=== PATIENT | male | born 1985 | race Two or more races ===

== ENCOUNTER 2018-04-25 15:50 | Emergency (ER) | payer SELFPAY ==
[2018-04-25 15:58] VITALS: BP 134/81
--- NOTE | 2018-04-25 16:01 | ER Document Report ---
HPI - HPI Patient complains to provider of: Knee pain Onset: Other - Several months Onset/Duration: Waxing and waning Pain Level: 4 Context: 32-year-old male with intermittent medial left knee pain for several months has increased pain for the past 3 days. It was so bad it caused him to hunch forward and have low back pain because of the limping. Hurts medially and sometimes over the patella. No injury although he had a cyst removed from his superior lateral knee years ago. No hx gout. No fever. No IV drug use. No radiculopathy. No saddle anesthesia. Associated Symptoms: None Exacerbated by: Other - Bending or straightening it varies according to the patient Relieved by: Denies Similar symptoms previously: Yes Recently seen / treated by doctor: No - ROS ROS below otherwise negative: Yes Systems Reviewed and Negative: Yes All other systems reviewed and negative Past Medical History - General Information source: Patient - Social History Smoking Status: Current Every Day Smoker Frequency of alcohol use: None Drug Abuse: None Lives with: Family Family History: Reviewed & Not Pertinent Past Surgical History: Reports: Hx Appendectomy - Immunizations Immunizations up to date: Yes Hx Diphtheria, Pertussis, Tetanus Vaccination: No Vertical Provider Document - CONSTITUTIONAL Agree With Documented VS: Yes Exam Limitations: No Limitations - INFECTION CONTROL TRAVEL OUTSIDE OF THE [place] IN LAST 30 DAYS: No - BACK Back: Normal Inspection Notes: Nontender - MUSCULOSKELETAL/EXTREMETIES Musculoskeletal/Extremeties: MAEW, FROM, Tender - Medial left knee, patellar tendon intact and is nontender. negative: Edema - NEURO Level of Consciousness: Alert - DERM Integumentary: No Rash Course - Re-evaluation Re-evalutation: 04/25/18 17:18 X-ray is negative per radiologist and the patient states the knee immobilizer is helping a lot. I will refer him to orthopedics for this chronic knee pain - Vital Signs Vital signs: Temp Pulse Resp BP Pulse Ox 98.5 F 90 18 134/81 H 97 04/25/18 15:57 04/25/18 15:57 04/25/18 15:57 04/25/18 15:57 04/25/18 15:57 Procedures - Immobilization Left Knee Time completed: 17:06 Pre-Proc Neuro Vasc Exam: Normal Performed by: PCT Post-Proc Neuro Vasc Exam: Normal Alignment checked and good: Yes Discharge - Discharge Clinical Impression: Chronic left knee pain Condition: Good Disposition: HOME, SELF-CARE Instructions: Acetaminophen, Ibuprofen (General) ([facility]), Knee Immobilizing Splint ([facility]), Sprained Knee ([facility]) Additional Instructions: Knee immobilizer for comfort Tylenol up to 4000 mg a day for pain Motrin 600 mg up to 4 times a day for inflammation and pain See the orthopedic doctor Return to the emergency room any worsening of the symptoms Prescriptions: Ibuprofen [Motrin 600 mg Tablet] 600 mg PO Q8HP PRN #30 tablet PRN Reason: Forms: Return to Work Referrals: SHIVAM MCCOY MD [ACTIVE STAFF] - Follow up as needed
[2018-04-25] MEDS ORDERED: ACETAMINOPHEN 325 MG TABLET PO ONE (16:06)
[2018-04-25] MEDS ORDERED: IBUPROFEN 400 MG TABLET PO ONE (16:06)
--- NOTE | 2018-04-25 17:16 | RADIOLOGY REPORT (SQ) ---
EXAM DESCRIPTION: KNEE LEFT 4 VIEW COMPLETED DATE/TIME: 04/25/2018 4:40 pm REASON FOR STUDY: knee pain COMPARISON: None. NUMBER OF VIEWS: Four views. TECHNIQUE: AP, lateral, and both oblique radiographic images acquired of the left knee. LIMITATIONS: None. FINDINGS: MINERALIZATION: Normal. BONES: No acute fracture or dislocation. No worrisome bone lesions. JOINT: No effusion. SOFT TISSUES: No soft tissue swelling. No radio-opaque foreign body. OTHER: No other significant finding. IMPRESSION: NO RADIOGRAPHIC EVIDENCE OF ACUTE INJURY. TECHNICAL DOCUMENTATION: JOB ID: [id number] [place]-[id number] 2010 [employer]- All Rights Reserved Reading location - IP/workstation name: [email or web address]
== END 2018-04-25 17:23 | disposition home or self-care (01) ==
LOC: ER 15:50
DX: M25.562 Pain in left knee (principal); G89.29 Other chronic pain; M54.5 Low back pain; F17.200 Nicotine dependence, unspecified, uncomplicated
CPT/HCPCS: 99283; 73564; L1830; J3490

== ENCOUNTER 2018-08-19 16:38 | Emergency (ER) | payer BC ==
[2018-08-19] MEDS ORDERED: ONDANSETRON HCL INJ/PF 4 MG/2 ML SDV IV ONE (17:42)
[2018-08-19] MEDS ORDERED: NORMAL SALINE 1000 ML 1,000 ML IV ONE (17:42)
[2018-08-19] MEDS ORDERED: DICYCLOMINE HCL INJ 20 MG/2 ML AMPULE IM ONE (17:42)
--- NOTE | 2018-08-19 17:44 | ER Document Report ---
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 With a history of constipation. Did not have any bowel movement for the last 5 days. TRAVEL OUTSIDE OF THE [place] IN LAST 30 DAYS: No - Related Data Allergies/Adverse Reactions: No Known Drug Allergies Allergy (Unknown, Verified 08/19/18 17:38) Past Medical History - Social History Chew tobacco use (# tins/day): No Drug Abuse: None - Past Medical History Cardiac Medical History: Denies: Hx Coronary Artery Disease, Hx Heart Attack, Hx Hypertension Pulmonary Medical History: Denies: Hx Asthma, Hx Bronchitis, Hx COPD, Hx Pneumonia Neurological Medical History: Denies: Hx Cerebrovascular Accident, Hx Seizures Renal/ Medical History: Denies: Hx Peritoneal Dialysis Musculoskeltal Medical History: Denies Hx Arthritis Past Surgical History: Reports: Hx Appendectomy - Immunizations Immunizations up to date: Yes Hx Diphtheria, Pertussis, Tetanus Vaccination: No Physical Exam - Vital signs Vitals: Temp Pulse Resp BP Pulse Ox 98.2 F 85 18 133/70 H 96 08/19/18 17:00 08/19/18 17:00 08/19/18 17:00 08/19/18 17:00 08/19/18 17:00 Course - Vital Signs Vital signs: Temp Pulse Resp BP Pulse Ox 98.2 F 85 18 133/70 H 96 08/19/18 17:00 08/19/18 17:00 08/19/18 17:00 08/19/18 17:00 08/19/18 17:00 Doctor's Discharge - Discharge Referrals: LILI WALSH MD [Primary Care Provider] - Follow up as needed
--- NOTE | 2018-08-19 18:23 | RADIOLOGY REPORT (SQ) ---
EXAM DESCRIPTION: ACUTE ABDOMEN SERIES COMPLETED DATE/TIME: 08/19/2018 6:14 pm REASON FOR STUDY: Abdominal pain nausea vomiting COMPARISON: None. NUMBER OF VIEWS: Three views. TECHNIQUE: Frontal chest, supine abdomen and upright/decubitus abdomen radiographic images acquired. LIMITATIONS: None. FINDINGS: CHEST: Lungs clear of infiltrates. FREE AIR: None. No abnormal gas collections. BOWEL GAS PATTERN: Nonobstructive pattern. No dilated loops or air fluid levels. CALCIFICATIONS: No suspicious calcifications. HARDWARE: None in the abdomen. SOFT TISSUES: No gross mass or suggestion of organomegaly. BONES: No acute fracture. No worrisome bone lesions. OTHER: No other significant finding. IMPRESSION: NO RADIOGRAPHIC EVIDENCE FOR ACUTE ABDOMINAL DISEASE. TECHNICAL DOCUMENTATION: JOB ID: [id number] [employer]- All Rights Reserved Reading location - IP/workstation name: [email or web address]
[2018-08-19 18:30] LABS: ABSOLUTE BASOPHILS # (AUTO) 0.1 10^3/uL (0.0-0.2); ABSOLUTE LYMPHOCYTES (AUTO) 1.5 10^3/uL (0.5-4.7); ABSOLUTE NEUT (AUTO) 14.6 10^3/uL (1.7-8.2); BASOPHILS % (AUTO) 0.3 % (0-2); EOSINOPHILS % (AUTO) 0.1 % (0-6); HEMATOCRIT 36.8 % (37.9-51.0); HEMOGLOBIN 11.6 g/dL (13.5-17.0); LYMPHOCYTES % (AUTO) 8.5 % (13-45); MEAN CORPUSCULAR HEMOGLOBIN 18.4 pg (27.0-33.4); MEAN CORPUSCULAR HGB CONC 31.4 g/dL (32.0-36.0); MONOCYTES % (AUTO) 5.8 % (3-13); PLATELET COUNT 337 10^3/uL (150-450); RED BLOOD COUNT 6.27 10^6/uL (4.35-5.55); RED CELL DISTRIBUTION WIDTH 17.1 % (11.5-14.0); SEGMENTED NEUTROPHILS % (AUTO) 85.3 % (42-78); TOTAL CELLS COUNTED % (AUTO) 100 %; WHITE BLOOD COUNT 17.1 10^3/uL (4.0-10.5)
[2018-08-19 18:45] LABS: ALANINE AMINOTRANSFERASE 19 U/L (21-72); ALBUMIN 4.8 g/dL (3.5-5.0); ALKALINE PHOSPHATASE 127 U/L (38-126); ANION GAP 13 (5-19); ASPARTATE AMINO TRANSFERASE 20 U/L (17-59); BILIRUBIN,DIRECT 0.4 mg/dL (0.0-0.4); BILIRUBIN,TOTAL 1.2 mg/dL (0.2-1.3); BLOOD UREA NITROGEN 10 mg/dL (7-20); CARBON DIOXIDE 28 mmol/L (22-30); CHLORIDE 102 mmol/L (98-107); GLUCOSE 103 mg/dL (75-110); LIPASE 33.2 U/L (23-300); POTASSIUM 4.2 mmol/L (3.6-5.0); SODIUM 143.4 mmol/L (137-145)
[2018-08-19 18:47] LABS: ANISOCYTOSIS 1+; HYPOCHROMASIA 2+; PLATELET COMMENT ADEQUATE; POIKILOCYTOSIS SLIGHT; TARGET CELLS SLIGHT; TOXIC GRANULATION SLIGHT
[2018-08-19 18:48] LABS: MEAN CORPUSCULAR VOLUME 59 fl (80-97)
[2018-08-19 20:39] LABS: AMORPHOUS SEDIMENT,URINE 3+ /HPF; BILIRUBIN,URINE NEGATIVE (NEGATIVE); COLOR,URINE YELLOW; GLUCOSE, URINE NEGATIVE (NEGATIVE); KETONES,URINE TRACE mg/dL (NEGATIVE); LEUKOCYTE ESTERASE,URINE NEGATIVE (NEGATIVE); NITRITE,URINE NEGATIVE (NEGATIVE); PROTEIN,URINE NEGATIVE (NEGATIVE); UROBILINOGEN,URINE NEGATIVE mg/dL (<2.0)
[2018-08-19 20:40] LABS: APPEARANCE,URINE CLOUDY
--- NOTE | 2018-08-19 20:44 | ER Document Report ---
ED General - General Chief Complaint: Abdominal Pain Stated Complaint: NAUSEA/VOMITING Time Seen by Provider: 08/19/18 17:41 Notes: Patient is a 33-year-old male presenting to the emergency department complaining of 4 days of nausea, body aches, chills, generalized abdominal cramping. Patient states his last bowel movement was on Thursday. States he typically goes for a couple days between bowel movements. Patient denies dysuria or URI symptoms. Patient denies vomiting or diarrhea. Past medical history: Anemia Medications: Methadone Allergies: None Surgical history: Appendectomy TRAVEL OUTSIDE OF THE [place] IN LAST 30 DAYS: No - Related Data Allergies/Adverse Reactions: No Known Drug Allergies Allergy (Unknown, Verified 08/19/18 17:38) Past Medical History - General Information source: Patient - Social History Smoking Status: Never Smoker Chew tobacco use (# tins/day): No Drug Abuse: None Lives with: Family Family History: Reviewed & Not Pertinent Patient has suicidal ideation: No Patient has homicidal ideation: No - Past Medical History Cardiac Medical History: Denies: Hx Coronary Artery Disease, Hx Heart Attack, Hx Hypertension Pulmonary Medical History: Denies: Hx Asthma, Hx Bronchitis, Hx COPD, Hx Pneumonia Neurological Medical History: Denies: Hx Cerebrovascular Accident, Hx Seizures Renal/ Medical History: Denies: Hx Peritoneal Dialysis Musculoskeletal Medical History: Denies Hx Arthritis Past Surgical History: Reports: Hx Appendectomy - Immunizations Immunizations up to date: Yes Hx Diphtheria, Pertussis, Tetanus Vaccination: No Review of Systems - Review of Systems Constitutional: See HPI. denies: Fever Cardiovascular: No symptoms reported Respiratory: See HPI Gastrointestinal: See HPI Genitourinary: See HPI Male Genitourinary: No symptoms reported Musculoskeletal: No symptoms reported Skin: No symptoms reported Hematologic/Lymphatic: No symptoms reported Neurological/Psychological: No symptoms reported Physical Exam - Vital signs Vitals: Temp Pulse Resp BP Pulse Ox 98.2 F 85 18 133/70 H 96 08/19/18 17:00 08/19/18 17:00 08/19/18 17:00 08/19/18 17:00 08/19/18 17:00 - Notes Notes: GENERAL: Alert, interacts well. No acute distress. HEAD: Normocephalic, atraumatic. EYES: Pupils equal, round, and reactive to light. Extraocular movements intact. ENT: Oral mucosa moist, tongue midline. NECK: Full range of motion. Supple. Trachea midline. LUNGS: Clear to auscultation bilaterally, no wheezes, rales, or rhonchi. No respiratory distress. HEART: Regular rate and rhythm. No murmur ABDOMEN: Soft, non-tender. Non-distended. Bowel sounds present in all 4 quadrants. EXTREMITIES: Moves all 4 extremities spontaneously. No edema, normal radial and dorsalis pedis pulses bilaterally. No cyanosis. BACK: no cervical, thoracic, lumbar midline tenderness. No saddle anesthesia, normal distal neurovascular exam. NEUROLOGICAL: Alert and oriented x3. Normal speech. cranial nerves II through XII grossly intact. PSYCH: Normal affect, normal mood. SKIN: Warm, dry, normal turgor. No rashes or lesions noted. Course - Re-evaluation Re-evalutation: 08/19/18 20:44 After treatments in the emergency room and upon my initial examination patient states he no longer feels nauseated and no longer has abdominal cramps. Patient states he overall feels "a lot better." Patient's SPEC grav 1.020 with trace ketones, patient did get 2 L of fluid in the emergency room. Urine sample was prior to fluid administration. Patient does have a leukocytosis on labs, no electrolyte abnormalities, no signs of urinary tract infection. 08/19/18 20:45 Patient does have evidence of a microcytic anemia on labs. Patient states he knows he has a history of anemia and used to and states he lost his insurance but recently regained it. Discussed with him close follow-up with primary care. - Vital Signs Vital signs: Temp Pulse Resp BP Pulse Ox 99.1 F 77 16 121/75 98 08/19/18 21:30 08/19/18 21:30 08/19/18 21:30 08/19/18 21:30 08/19/18 21:30 - Laboratory Result Diagrams: 08/19/18 18:10 08/19/18 18:10 Laboratory results interpreted by me: 08/19/18 08/19/18 08/19/18 18:04 18:10 18:10 WBC 17.1 H RBC 6.27 H Hgb 11.6 L Hct 36.8 L MCV 59 L MCH 18.4 L MCHC 31.4 L RDW 17.1 H Seg Neutrophils % 85.3 H Lymphocytes % 8.5 L Absolute Neutrophils 14.6 H ALT 19 L Alkaline Phosphatase 127 H Total Protein 9.0 H Urine Ketones TRACE H Discharge - Discharge Clinical Impression: Nausea, Abdominal cramping, Body aches Condition: Stable Disposition: HOME, SELF-CARE Instructions: Antispasmodics ([facility]), Nausea or Vomiting, Nonspecific ([facility]) Additional Instructions: As we discussed you have been seen and treated in the emergency department for nausea, abdominal cramping, generalized body aches. You do have an elevation in your white blood cells which is likely a virus at this time. Viruses do not respond to antibiotics so they are unwarranted at this time. You should follow- up with your primary care provider due to your relative anemia of your your labs. Being anemic can make you tired and weak. You may need to be put on iron supplements. Please return to the emergency room for any other concerning symptom Prescriptions: Dicyclomine HCl [Bentyl 20 mg Tablet] 20 mg PO QID #40 tablet Ondansetron [Zofran Odt 4 mg Tablet] 1 - 2 tab PO Q4H PRN #15 tab.rapdis PRN Reason: For Nausea/Vomiting Forms: Return to Work Referrals: LILI WALSH MD [Primary Care Provider] - Follow up as needed
[2018-08-19 21:33] VITALS: BP 121/75
[2018-08-20 12:19] LABS: PATH REVIEW PATHOLOGIST REVIEWED
== END 2018-08-19 21:37 | disposition home or self-care (01) ==
LOC: ER 16:38
DX: R11.2 Nausea with vomiting, unspecified (principal); R10.84 Generalized abdominal pain; M79.10 Myalgia, unspecified site
CPT/HCPCS: 99284; 96372; 96361; 96374; 36415; 83690; 85025; 80053; 81001; 74022; J0500; J2405; J7030